=== PATIENT | male | born 1980 | race Caucasian/White ===

== ENCOUNTER 2017-09-22 23:36 | Emergency (ER) | payer BC ==
[2017-09-22] MEDS ORDERED: Sodium Chloride 0.9% 1,000 ML IV ONE (23:51)
[2017-09-22] MEDS ORDERED: Acetaminophen 325 MG Tab PO ONE (23:51)
[2017-09-22] MEDS ORDERED: Ondansetron 4 MG/2 ML SDV IVPUSH ONE (23:51)
--- NOTE | 2017-09-22 23:51 | EDM.PDOC ---
ED HPI GENERAL MEDICAL PROBLEM - General Chief Complaint: Gastrointestinal Problem Stated Complaint: FEVER Time Seen by Provider: 09/22/17 23:48 - History of Present Illness INITIAL COMMENTS - FREE TEXT/NARRATIVE: HISTORY AND PHYSICAL: History of present illness: Patient 37-year-old white male sensory concern of fever and generalized body aches vomiting diarrhea 1 day he denies abdominal pain denies chest pain or cough denies other concern Review of systems: As per history of present illness and below otherwise all systems reviewed and negative. Past medical history: As per history of present illness and as reviewed below otherwise noncontributory. Surgical history: As per history of present illness and as reviewed below otherwise noncontributory. Social history: No reported history of drug or alcohol abuse. Family history: As per history of present illness and as reviewed below otherwise noncontributory. Physical exam: HEENT: Atraumatic, normocephalic, pupils reactive, negative for conjunctival pallor or scleral icterus, mucous membranes dry, throat clear, neck supple, nontender, trachea midline. Lungs: Clear to auscultation, breath sounds equal bilaterally, chest nontender. Heart: S1S2, regular, negative for clicks, rubs, or JVD. Abdomen: Soft, nondistended, nontender. Negative for masses or hepatosplenomegaly. Negative for costovertebral tenderness. Pelvis: Stable nontender. Genitourinary: Deferred. Rectal: Deferred. Extremities: Atraumatic, negative for cords or calf pain. Neurovascular unremarkable. Neuro: Awake, alert, oriented. Cranial nerves II through XII unremarkable. Cerebellum unremarkable. Motor and sensory unremarkable throughout. Exam nonfocal. Diagnostics: CBC CMP influenza screen Therapeutics: Will saline 1 L bolus Zofran 4 mg IV Impression: #1 gastroenteritis with dehydration #2 viral syndrome #3 history of fever Definitive disposition and diagnosis as appropriate pending reevaluation and review of above. - Related Data Allergies Allergy/AdvReac Type Severity Reaction Status Date / Time No Known Allergies Allergy Verified 09/22/17 23:41 Home Meds: Home Meds . [No Known Home Meds] 09/22/17 [History] Past Medical History - Past Health History Medical/Surgical History: Denies Medical/Surgical History Social & Family History - Family History Family Medical History: Noncontributory - Tobacco Use Smoking Status *Q: Current Every Day Smoker Years of Tobacco use: 6 Packs/Tins Daily: 1 - Recreational Drug Use Recreational Drug Use: No ED ROS GENERAL - Review of Systems Review Of Systems: ROS reveals no pertinent complaints other than HPI. ED EXAM, GENERAL - Physical Exam Exam: See Below (See dictation) Course - Vital Signs Last Recorded V/S: Last Vital Signs Temp 37.6 C 09/23/17 01:25 Pulse 84 09/23/17 01:25 Resp 18 09/23/17 01:25 BP 100/51 L 09/23/17 01:25 Pulse Ox 96 09/23/17 01:25 - Orders/Labs/Meds Labs: Laboratory Tests 09/22/17 09/22/17 Range/Units 23:59 23:59 WBC 9.88 (4.0-11.0) K/uL RBC 5.07 (4.50-5.90) M/uL Hgb 15.3 (13.0-17.0) g/dL Hct 45.8 (38.0-50.0) % MCV 90.3 (80.0-98.0) fL MCH 30.2 (27.0-32.0) pg MCHC 33.4 (31.0-37.0) g/dL RDW Std Deviation 47.7 (28.0-62.0) fl RDW Coeff of Ruma 14 (11.0-15.0) % Plt Count 196 (150-400) K/uL MPV 10.80 (7.40-12.00) fL Neut % (Auto) 75.4 (48.0-80.0) % Lymph % (Auto) 14.3 L (16.0-40.0) % [place] % (Auto) 7.6 (0.0-15.0) % Eos % (Auto) 2.5 (0.0-7.0) % Baso % (Auto) 0.2 (0.0-1.5) % Neut # (Auto) 7.5 H (1.4-5.7) K/uL Lymph # (Auto) 1.4 (0.6-2.4) K/uL [place] # (Auto) 0.8 (0.0-0.8) K/uL Eos # (Auto) 0.3 (0.0-0.7) K/uL Baso # (Auto) 0.0 (0.0-0.1) K/uL Nucleated RBC % 0.0 /100WBC Nucleated RBCs # 0 K/uL Sodium 137 (136-146) mmol/L Potassium 3.9 (3.5-5.1) mmol/L Chloride 104 (98-110) mmol/L Carbon Dioxide 23 (21-31) mmol/L BUN 19 (6.0-23.0) mg/dL Creatinine 0.9 (0.6-1.5) mg/dL Est Cr Clr Drug Dosing 139.31 mL/min Estimated GFR (MDRD) > 60.0 ml/min Glucose 114 H (60-110) mg/dL Calcium 8.6 L (8.8-10.8) mg/dL Total Bilirubin 0.7 (0.1-1.5) mg/dL AST 15 (5-40) IU/L ALT 19 (8-54) IU/L Alkaline Phosphatase 35 L (40-150) Total Protein 6.5 (6.0-8.0) g/dL Albumin 3.7 (3.5-5.0) g/dL Globulin 2.8 (2.0-3.5) g/dL Albumin/Globulin Ratio 1.3 (1.3-2.8) Meds: Medications Discontinued Medications Generic Name Dose Route Start Last Admin Trade Name Lizzy PRN Reason Stop Dose Admin Acetaminophen 1,000 mg 09/22/17 23:51 09/23/17 00:20 Tylenol PO 09/22/17 23:52 1,000 mg NOW ONE Administration Sodium Chloride 1,000 mls @ 999 mls/hr 09/22/17 23:51 09/23/17 00:18 Normal Saline IV 09/23/17 00:51 999 mls/hr STAT ONE Administration Ondansetron HCl 4 mg 09/22/17 23:51 09/23/17 00:18 Zofran IVPUSH 09/22/17 23:52 4 mg ONETIME ONE Administration Departure - Departure Time of Disposition: 01:44 Disposition: Home, Self-Care 01 Condition: Good Clinical Impression: Gastroenteritis, Viral syndrome - Discharge Information Instructions: Viral Gastroenteritis, Adult, [id number], Rehydration, Adult Referrals: [facility] [Outside] PCP,None [Primary Care Provider] - Forms: ED Department Discharge Additional Instructions: The following information is given to patients seen in the emergency department who are being discharged to home. This information is to outline your options for follow-up care. We provide all patients seen in our emergency department with a follow-up referral. The need for follow-up, as well as the timing and circumstances, are variable depending upon the specifics of your emergency department visit. If you don't have a primary care physician on staff, we will provide you with a referral. We always advise you to contact your personal physician following an emergency department visit to inform them of the circumstance of the visit and for follow-up with them and/or the need for any referrals to a consulting specialist. The emergency department will also refer you to a specialist when appropriate. This referral assures that you have the opportunity for followup care with a specialist. All of these measure are taken in an effort to provide you with optimal care, which includes your followup. Under all circumstances we always encourage you to contact your private physician who remains a resource for coordinating your care. When calling for followup care, please make the office aware that this follow-up is from your recent emergency room visit. If for any reason you are refused follow-up, please contact the [facility] emergency department at and asked to speak to the emergency department charge nurse. Push fluids follow primary medical doctor 1-2 days return as needed as discussed ]
[2017-09-23 00:52] LABS: CHLORIDE,CL 104 mmol/L (98-110); SODIUM,NA 137 mmol/L (136-146)
== END 2017-09-23 01:25 | disposition home or self-care (01) ==
LOC: MW.ED 23:36
DX: K52.9 Noninfective gastroenteritis and colitis, unspecified (principal); B34.9 Viral infection, unspecified; E86.0 Dehydration; F17.210 Nicotine dependence, cigarettes, uncomplicated
CPT/HCPCS: 36415; 80053; 85025; 87804; 96361; 96374; 99283; A9270; J2405; J7040